=== PATIENT | male | born 1985 | race Caucasian/White ===

== ENCOUNTER 2016-11-13 02:05 | Emergency (ER) | payer OTHER ==
[~2016-11-13] VITALS: Ht 188 cm; Wt 113.5 kg
[2016-11-13] MEDS ORDERED: SODIUM CHLOR 0.9% 1000 ML INJ 1,000 ML IV SCH (02:20)
[2016-11-13] MEDS ORDERED: SODIUM CHLORIDE 0.9% FLUSH 10 ML FLUSH IVF PRN (02:30)
[2016-11-13] MEDS ORDERED: MORPHINE SULFATE 4 MG/ML INJ IV PUSH ONE (02:30)
[2016-11-13] MEDS ORDERED: ceFAZolin 2 GM PREMIX 50 ML IV ONE (02:30)
[2016-11-13 02:32] VITALS: BP 168/99; PULSE 80; RESP 20; TEMP 97.8; O2SAT 99
[2016-11-13 02:39] LABS: AUTOMATED NEUTROPHIL # 12.4 TH/MM3 (1.8-7.7); BASOPHIL % 0.3 % (0.0-2.0); EOSINOPHIL # 0.2 TH/MM3 (0-0.4); EOSINOPHIL % 0.9 % (0.0-4.0); HEMATOCRIT 43.4 % (39.0-51.0); HEMO FLAGS DIFF FINAL; LYMPH % 21.5 % (9.0-44.0); LYMPHOCYTE # 3.8 TH/MM3 (1.0-4.8); MEAN CELL VOLUME 92.3 FL (80.0-100.0); MEAN CORPUSCULAR HEMOGLOBIN 30.7 PG (27.0-34.0); MEAN CORPUSCULAR HGB CONC 33.3 % (32.0-36.0); MONO % 6.2 % (0.0-8.0); NEUT % 71.1 % (16.0-70.0); PLATELET COUNT 282 TH/MM3 (150-450); RED CELL DISTRIBUTION WIDTH 12.6 % (11.6-17.2); WHITE BLOOD COUNT 17.4 TH/MM3 (4.0-11.0)
[2016-11-13 02:49] LABS: APTT (PATIENT) 24.5 SEC (24.3-30.1); INTERNATIONAL NORMALIZED RATIO 0.9 RATIO; PROTHROMBIN TIME - PATIENT 10.3 SEC (9.8-11.6)
[2016-11-13 02:56] LABS: BICARBONATE 26.2 MEQ/L (21.0-32.0); POTASSIUM 3.4 MEQ/L (3.5-5.1)
[2016-11-13] MEDS ORDERED: IOHEXOL 350 MG/ML 10 ML VIAL (for RAD DIAG) IV ONE (03:03)
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
[2016-11-13 03:16] VITALS: BP 153/84; PULSE 84; RESP 18; O2SAT 100
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
--- NOTE | 2016-11-13 03:43 | RADRPT ---
EXAM DATE/TIME: 11/13/2016 03:04 [facility] COMPARISON: No previous studies available for comparison. [place] [facility] [place] Complains of lower right leg pain. Laceration to aterior aspect of right tib/fib. MEDICAL HISTORY : None. SURGICAL HISTORY : None. ENCOUNTER: Initial ACUITY: 1 day PAIN SCORE: 9/10 LOCATION: Right Tib/Fib FINDINGS: Pretibial soft tissues are focally lacerated, just below the tibial tuberosity. The right tibia and f ibula are intact. No radiopaque foreign body demonstrated. CONCLUSION: Soft tissue injury anteriorly of the upper leg. No fracture or radiopaque body. Ceferino Govea MD on November 13, 2016 at 3:41 Board Certified Radiologist. This report was verified electronically.
[2016-11-13] MEDS ORDERED: HYDR-3516 PO (03:56)
[2016-11-13] MEDS ORDERED: COLA100C3 PO (03:56)
[2016-11-13] MEDS ORDERED: SILVER SULFADIAZINE 1% CR 400 GM JAR TOPICAL ONE (04:00)
[2016-11-13] MEDS ORDERED: LIDOCAINE 1%/EPINEPHrine 1:100,000 SOLN 20 ML VIAL INFIL ONE (04:00)
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
[2016-11-13] MEDS ORDERED: ONDANSETRON HCL 4 MG/2 ML VIAL ONE (05:48)
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
== END 2016-11-13 06:57 | disposition home or self-care (01) ==
LOC: NEPC 02:05
DX: S81.811A Laceration without foreign body, right lower leg, initial encounter (principal); S00.01XA Abrasion of scalp, initial encounter; S00.81XA Abrasion of other part of head, initial encounter; S40.212A Abrasion of left shoulder, initial encounter; S20.419A Abrasion of unspecified back wall of thorax, initial encounter; S30.0XXA Contusion of lower back and pelvis, initial encounter; M25.572 Pain in left ankle and joints of left foot; V23.4XXA Motorcycle driver injured in collision with car, pick-up truck or van in traffic accident, initial encounter
CPT/HCPCS: 12002; 16000; 70450; 71260; 72125; 73590; 73610; 73630; 74177; 80048; 85025; 85610; 85730; 86850; 86900; 86901; 96374; 99284; J0690; J2270; J7030; Q9967; J2405

== ENCOUNTER 2017-08-24 03:40 | Inpatient (IN) | payer OTHER ==
[2017-08-24] VITALS (8 sets, daily range): BP systolic 135–159; BP diastolic 72–97; PULSE 68–94; RESP 16–18; TEMP 95.4–98; O2SAT 96–99
[~2017-08-24] VITALS: Ht 185.4 cm; Wt 101.0 kg
[~2017-08-24 03:40] MED LIST: COLA100C3 PO; HYDR-3516 PO
[2017-08-24] MEDS ORDERED: IOHEXOL 350 MG/ML 10 ML VIAL (for RAD DIAG) IVCONTRAST ONE (03:41)
[2017-08-24] MEDS ORDERED: DIPHTH/TETANUS/ACEL PERTUSSIS (BOOSTER) 0.5 ML VIAL/PFS IM ONE (03:46)
[2017-08-24] MEDS ORDERED: ceFAZolin 2 GM PREMIX 50 ML ONE (03:46)
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
[2017-08-24 04:03] LABS: BASOPHIL % 0.4 % (0.0-2.0); EOSINOPHIL # 0.1 TH/MM3 (0-0.4); HEMOGLOBIN 14.5 GM/DL (13.0-17.0); LYMPH % 30.4 % (9.0-44.0); LYMPHOCYTE # 3.7 TH/MM3 (1.0-4.8); MEAN CELL VOLUME 92.1 FL (80.0-100.0); MEAN CORPUSCULAR HEMOGLOBIN 34.1 PG (27.0-34.0); MONO % 9.8 % (0.0-8.0); MONOCYTE # 1.2 TH/MM3 (0-0.9); NEUT % 58.4 % (16.0-70.0); PLATELET COUNT 275 TH/MM3 (150-450); RED BLOOD COUNT 4.24 MIL/MM3 (4.50-5.90); RED CELL DISTRIBUTION WIDTH 12.6 % (11.6-17.2)
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
[2017-08-24 04:15] LABS: PROTHROMBIN TIME - PATIENT 10.1 SEC (9.8-11.6)
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
[2017-08-24] MEDS ORDERED: ONDANSETRON HCL 4 MG/2 ML VIAL IV PUSH ONE (04:30)
[2017-08-24] MEDS ORDERED: MORPHINE SULFATE 4 MG/ML INJ IV PUSH ONE ×2 (04:30→06:00)
[2017-08-24] MEDS ORDERED: LIDOCAINE 1%/EPINEPHrine 1:100,000 SOLN 20 ML VIAL INFIL ONE (04:30)
[2017-08-24] MEDS ORDERED: LIDOCAINE HCL 1% 30 ML VIAL INFIL ONE (06:00)
[2017-08-24] MEDS ORDERED: ONDANSETRON HCL 4 MG/2 ML VIAL IV PUSH PRN (06:00)
[2017-08-24] MEDS ORDERED: HYDROmorphone HCL PF 2 MG/ML VIAL IV PRN (06:00)
[2017-08-24] MEDS ORDERED: CHLORHEXIDINE GLUCONATE 2 % 1 PACK (2 CLOTHS) TOP PRN (06:00)
[2017-08-24] MEDS ORDERED: SODIUM CHLOR 0.9% 1000 ML INJ 1,000 ML IV SCH (06:00)
[2017-08-24] MEDS ORDERED: MISCELLANEOUS NURSING INFORMATION XX SCH (06:00)
[2017-08-24] MEDS: LACTATED RINGER'S 1000 ML INJ 1,000 ML IV SCH ×3 (06:30→19:46)
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
[2017-08-24] MEDS: MAGNESIUM HYDROXIDE SUSP 30 ML CUP PO SCH ×2 (09:00→19:46)
[2017-08-24] MEDS: FAMOTIDINE 20 MG TAB PO SCH ×2 (10:15→19:45)
[2017-08-24] MEDS: DOCUSATE SODIUM 50 MG/SENNA 8.6 MG TAB PO SCH ×2 (10:15→19:46)
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
[2017-08-25] MEDS ORDERED: CHLORHEXIDINE GLUCONATE 2 % 1 PACK (2 CLOTHS) TOP SCH (04:00)
[2017-08-25 04:20] LABS: AUTOMATED NEUTROPHIL # 5.8 TH/MM3 (1.8-7.7); BASOPHIL % 0.2 % (0.0-2.0); EOSINOPHIL # 0.1 TH/MM3 (0-0.4); EOSINOPHIL % 1.3 % (0.0-4.0); HEMATOCRIT 41.1 % (39.0-51.0); HEMOGLOBIN 14.6 GM/DL (13.0-17.0); LYMPH % 29.9 % (9.0-44.0); LYMPHOCYTE # 2.9 TH/MM3 (1.0-4.8); MEAN CELL VOLUME 92.2 FL (80.0-100.0); MEAN CORPUSCULAR HEMOGLOBIN 32.7 PG (27.0-34.0); MEAN CORPUSCULAR HGB CONC 35.5 % (32.0-36.0); MEAN PLATELET VOLUME 7.2 FL (7.0-11.0); MONO % 8.5 % (0.0-8.0); MONOCYTE # 0.8 TH/MM3 (0-0.9); NEUT % 60.1 % (16.0-70.0); PLATELET COUNT 270 TH/MM3 (150-450); RED BLOOD COUNT 4.46 MIL/MM3 (4.50-5.90); RED CELL DISTRIBUTION WIDTH 12.4 % (11.6-17.2); WHITE BLOOD COUNT 9.6 TH/MM3 (4.0-11.0)
[2017-08-25 04:48] LABS: BICARBONATE 29.9 MEQ/L (21.0-32.0); CALCIUM 8.9 MG/DL (8.5-10.1); CREATININE 1.01 MG/DL (0.60-1.30)
[2017-08-25 04:59] VITALS: BP 155/93; PULSE 77; RESP 18; TEMP 97.4; O2SAT 97
[2017-08-25 08:00] VITALS: BP 159/93; PULSE 87; RESP 16; TEMP 97.2; O2SAT 97
[2017-08-25] MEDS: MAGNESIUM HYDROXIDE SUSP 30 ML CUP PO SCH (09:00)
[2017-08-25] MEDS: FAMOTIDINE 20 MG TAB PO SCH (09:08)
[2017-08-25] MEDS: DOCUSATE SODIUM 50 MG/SENNA 8.6 MG TAB PO SCH (09:08)
[2017-08-25] MEDS ORDERED: PERI PO (11:07)
[2017-08-25] MEDS ORDERED: PERC5TAB12 PO (11:17)
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
[2017-08-25] MEDS: LACTATED RINGER'S 1000 ML INJ 1,000 ML IV SCH (11:44)
[2017-08-25 12:00] VITALS: BP 152/81; PULSE 73; RESP 16; TEMP 97; O2SAT 95
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
== END 2017-08-25 16:09 | disposition home or self-care (01) | DRG 87 ==
LOC: NEPI 03:40 → EDBD 06:24 → NEDA 06:24 → MERGE 06:24 → N06B 08:37
PROVIDERS: ADMIT Surgery Trauma Surgery; ATTEND Surgery Trauma Surgery
PROC: 0HQ1XZZ Repair Face Skin, External Approach (ICD-10-PCS; principal; 2017-08-24)
PROC: 0HQ0XZZ Repair Scalp Skin, External Approach (ICD-10-PCS; 2017-08-24)
DX: S02.113A Unspecified occipital condyle fracture, initial encounter for closed fracture (principal); S01.00XA Unspecified open wound of scalp, initial encounter; S06.0X9A Concussion with loss of consciousness of unspecified duration, initial encounter; V29.49XA Motorcycle driver injured in collision with other motor vehicles in traffic accident, initial encounter; Y92.410 Unspecified street and highway as the place of occurrence of the external cause; E87.6 Hypokalemia; F10.129 Alcohol abuse with intoxication, unspecified; Y90.3 Blood alcohol level of 60-79 mg/100 ml; R40.2412 Glasgow coma scale score 13-15, at arrival to emergency department; F17.210 Nicotine dependence, cigarettes, uncomplicated
CPT/HCPCS: 12002; 70450; 70486; 71045; 71260; 72040; 72125; 72170; 73020; 74177; 80048; 80307; 85025; 85384; 85610; 85730; 86850; 86900; 86901; 86920; 90471; 90715; 96374; 96375; J0690; J1170; J2270; J7120; L0150; L0172; Q9967